=== PATIENT | female | born 1965 | race Caucasian/White ===

== ENCOUNTER 2016-10-31 16:44 | Emergency (ER) | payer OTHER ==
[~2016-10-31] VITALS: Ht 162.6 cm; Wt 88.5 kg
[2016-10-31 16:49] VITALS: Ht 162.6 cm; Wt 88.5 kg
[2016-10-31] MEDS ORDERED: SOD CHLORIDE 0.9% 500 ML IV STA (17:10)
[2016-10-31] MEDS ORDERED: KETOROLAC 30 MG INJ IV STA (17:10)
[2016-10-31 17:43] LABS: BASOPHILS % 0.3 % (0.0-2.0); EOSINOPHILS # 0.3 10^3/ul (0.0-0.5); EOSINOPHILS % 2.6 % (0.0-7.0); HEMATOCRIT 40.7 % (37.0-47.0); HEMOGLOBIN 13.3 g/dl (12.0-16.0); LYMPHOCYTES # 3.2 10^3/ul (0.8-2.9); LYMPHOCYTES % 33.8 % (15.0-51.0); MEAN CORPUSCULAR HGB CONC 32.7 g/dl (32.0-37.0); MEAN CORPUSCULAR VOLUME 82.7 fl (82.0-101.0); MEAN PLATELET VOLUME 10.2 fl (7.4-10.4); MONOCYTE # 0.9 10^3/ul (0.3-0.9); MONOCYTES % 8.9 % (0.0-11.0); NEUTROPHIL # 5.2 10^3/ul (1.6-7.5); NEUTROPHILS % 54.1 % (39.0-77.0); PLATELET COUNT 298 10^3/UL (140-415); RED BLOOD COUNT 4.92 10^6/ul (4.20-5.40); RED CELL DISTRIBUTION WIDTH 13.3 % (11.5-14.5); WHITE BLOOD COUNT 9.6 10^3/ul (4.8-10.8)
[2016-10-31 17:50] LABS: ADD UMIC YES; UR ASCORBIC ACID NEGATIVE (NEGATIVE); UR BILIRUBIN (Dip) NEGATIVE (NEGATIVE); UR BLOOD (Dip) 3+ mg/dL (NEGATIVE); UR CLARITY CLEAR (CLEAR); UR COLOR COLORLESS (YELLOW); UR GLUCOSE (Dip) NEGATIVE (NEGATIVE); UR KETONES (Dip) NEGATIVE (NEGATIVE); UR LEUKOCYTE ESTERASE (Dip) TRACE Leu/ul (NEGATIVE); UR NITRITE (Dip) NEGATIVE (NEGATIVE); UR RBC 0 /HPF (0-5); UR SPECIFIC GRAVITY (Dip) 1.002 (1.003-1.030); UR TOTAL PROTEIN (Dip) NEGATIVE (NEGATIVE); UR UROBILINOGEN (Dip) NEGATIVE (NEGATIVE)
[2016-10-31 18:03] LABS: ALBUMIN 4.4 g/dl (3.3-4.9); ALBUMIN/GLOBULIN RATIO 1.46; CALCIUM 9.3 mg/dl (8.4-10.2); CREATININE 0.63 mg/dl (0.44-1.00); POTASSIUM 3.2 mmol/L (3.5-5.1); TOTAL PROTEIN 7.4 g/dl (6.1-8.1)
--- NOTE | 2016-10-31 18:23 | ERD ---
ER Documentation Chief Complaint Date/Time DATE: 10/31/16 TIME: 18:21 Chief Complaint LEFT ARM PAIN RADIATING TO HER HEAD X 2 DAYS AND MESTRUAL PERIODX 20 DAY HPI This patient is a 50-year-old female who has a history of diabetes and high blood pressure complaining of multiple complaints. She is complaining of left arm pain that radiates to her left side of her neck and head. This is been for 2 days. She denies any chest pain but does admit to some occasional shortness of breath. The pain is worse with movement. She is also complaining of lower bilateral pelvic pain. She denies any fever, nausea, vomiting. Denies any dysuria hematuria or increased urinary frequency but states she has been on her menstrual period for 20 days and continues to have some bleeding that she describes as spotting. ROS All systems reviewed and are negative except as per history of present illness. Medications Home Meds Active Scripts Hydrocodone/Acetaminophen ([place] 5-325 Tablet) 1 Each Tablet, 1 TAB PO Q6H Y for PAIN, #20 TAB Prov:CLAUDIA WASHBURN PA-C 10/31/16 Ibuprofen* (Motrin*) 600 Mg Tab, 600 MG PO Q6, #30 TAB Prov:CLAUDIA WASHBURN PA-C 10/31/16 Allergies Allergies: Coded Allergies: No Known Allergy (Unverified , 10/31/16) PMhx/Soc Hx Cardiac Disorders: Yes (HTN) Hx Psychiatric Problems: Yes (depression) Hx Miscellaneous Medical Probl: Yes (diabetes) Hx Alcohol Use: No Hx Substance Use: No Hx Tobacco Use: No Smoking Status: Never smoker FmHx Family History: diabetes Physical Exam Vitals Vital Signs Date Time Temp Pulse Resp B/P Pulse Ox O2 Delivery O2 Flow Rate FiO2 10/31/16 16:49 98.2 100 18 153/79 97 Physical Exam General: well developed, well nourished, alert, nontoxic, no distress Head: normocephalic, atraumatic Neck: Supple, nontender, no lymphadenopathy, no midline tenderness Respiratory: Clear to auscaultation bilaterally, speaks in full sentences, no use of accesory muscles or labored breathing, no rales, ronchi, or wheezing Cardiovascular: RRR, No murmurs GI: soft, non tender, non distended, negative murphys sign, negative mcburneys point tenderness, no cva tenderness bilaterally, no rebound or guarding Back: no midline tenderness, no step offs or bony abnormalities, sensation to light touch in tact Extremities: moving all extremities normally, normal gait, no edema Result Diagram: 10/31/16 1720 10/31/16 1720 Results 24 hrs Laboratory Tests Test 10/31/16 17:20 White Blood Count 9.610^3/ul Red Blood Count 4.9210^6/ul Hemoglobin 13.3g/dl Hematocrit 40.7% Mean Corpuscular Volume 82.7fl Mean Corpuscular Hemoglobin 27.0pg Mean Corpuscular Hemoglobin Concent 32.7g/dl Red Cell Distribution Width 13.3% Platelet Count 67858^3/UL Mean Platelet Volume 10.2fl Neutrophils % 54.1% Lymphocytes % 33.8% Monocytes % 8.9% Eosinophils % 2.6% Basophils % 0.3% Nucleated Red Blood Cells % 0.0/100WBC Neutrophils # 5.210^3/ul Lymphocytes # 3.210^3/ul Monocytes # 0.910^3/ul Eosinophils # 0.310^3/ul Basophils # 0.010^3/ul Nucleated Red Blood Cells # 0.010^3/ul Urine Color COLORLESS Urine Clarity CLEAR Urine pH 7.0 Urine Specific [place] 1.002 Urine Ketones NEGATIVEmg/dL Urine Nitrite NEGATIVEmg/dL Urine Bilirubin NEGATIVEmg/dL Urine Urobilinogen NEGATIVEmg/dL Urine Leukocyte Esterase TRACELeu/ul Urine Microscopic RBC 0/HPF Urine Microscopic WBC 0/HPF Urine Hemoglobin 3+mg/dL Urine Glucose NEGATIVEmg/dL Urine Total Protein NEGATIVEmg/dl Sodium Level 140mmol/L Potassium Level 3.2mmol/L Chloride Level 105mmol/L Carbon Dioxide Level 24mmol/L Anion Gap 14 Blood Urea Nitrogen 13mg/dl Creatinine 0.63mg/dl Glucose Level 144mg/dl Calcium Level 9.3mg/dl Total Bilirubin 0.0mg/dl Direct Bilirubin 0.00mg/dl Indirect Bilirubin 0.0mg/dl Aspartate Amino Transf (AST/SGOT) 21IU/L Alanine Aminotransferase (ALT/SGPT) 26IU/L Alkaline Phosphatase 61IU/L Troponin I < 0.012ng/ml Total Protein 7.4g/dl Albumin 4.4g/dl Globulin 3.00g/dl Albumin/Globulin Ratio 1.46 Lipase 144U/L Current Medications Medications (Trade) Dose Ordered Sig/Wilfred Route PRN Reason Start Time Stop Time Status Last Admin Dose Admin Sodium Chloride (NS) 500 ml @ 500 mls/hr Q1H STAT IV 10/31/16 17:10 10/31/16 18:09 DC 10/31/16 17:26 Ketorolac Tromethamine (Toradol) 30 mg ONCE STAT IV 10/31/16 17:10 10/31/16 17:12 DC 10/31/16 17:27 Procedures/MDM Patient presents with multiple complaints including left arm pain for 2 days and prolonged menstrual period for the past 20 days. She does have elevated blood pressure 153/79 and a pulse of 100 otherwise her vital signs are normal. She is however very well-appearing. EKG was ordered an EKG was normal sinus rhythm with a rate of 95 with no evidence of ST elevation or acute ischemic changes as read by my supervising physician. Us shows fibroids. Labs including troponin unremarkable. Patient discharged with anti-inflammatories and [place] for pain as well as list of [facility] clinics she can follow up with. Recommended this patient follow up with her primary care doctor within 48 hours or return to the emergency room for any worsening of symptoms. However this time I do believe there is suitable for outpatient management. I answered all their questions and they agreed with the plan and were discharged home. Departure Diagnosis: Primary Impression: Fibroids Condition: Stable CLAUDIA WASHBURN PA-C Oct 31, 2016 18:23
[2016-10-31] MEDS ORDERED: IBUP-1542 PO (19:04)
[2016-10-31] MEDS ORDERED: HYDR-906 PO (19:09)
[2016-10-31 19:20] VITALS: BP 128/68; PULSE 77; RESP 18
--- NOTE | 2016-10-31 20:44 | RADRPT ---
PROCEDURE: US Pelvis CLINICAL INDICATION: pelvic pain and bleeding TECHNIQUE: Multiple sonographic images of the pelvis were obtained utilizing a transabdominal and endovaginal technique. The images were reviewed on a PACS workstation. COMPARISON: None. LMP: 10/11/2016 FINDINGS: The uterus measures 12.0 x 5.7 x 7.6 cm. The endometrial echo complex measures 3 mm in thickness. There is a 4.3 cm anterior submucosal fibroid at the level of the upper body with prominent posterio r displacement of the endometrium. There is a 1.9 cm anterior intramural fibroid at the level of the upper body. There is a 2.7 cm anterior submucosal fibroid at the level of the upper body. The right ovary measures 3.0 x 1.9 x 2.5 cm. The left ovary measures 3.4 x 2.1 x 2.5 cm. There is no rmal vascular flow in both ovaries. No significant ovarian lesions are seen. No significant pelvic free fluid is identified. IMPRESSION: Multiple uterine fibroids are identified measuring up to 4.3 cm. Otherwise, unremarkable pelvic ultrasound. RPTAT: EE Physician Danuta Date Time Electronically viewed and signed by Physician Danuta on 10/31/2016 18:52 /
== END 2016-10-31 19:22 | disposition home or self-care (01) ==
LOC: FTE 16:44
DX: D25.9 Leiomyoma of uterus, unspecified (principal); I10 Essential (primary) hypertension; E11.9 Type 2 diabetes mellitus without complications; R10.2 Pelvic and perineal pain
CPT/HCPCS: 76856; 80053; 81001; 83690; 84484; 85025; 93005; J1885; J7040; 96374